=== PATIENT | male | born 1985 | race Caucasian/White ===

== ENCOUNTER 2022-03-19 12:32 | Emergency (ER) | payer SELFPAY ==
--- NOTE | 2022-03-19 13:09 | PC.NURSE ---
patient walked out of ED reporting that he can just run to urgent care.
== END 2022-03-20 03:08 | disposition left against medical advice (07) ==
DX: Z53.21 Procedure and treatment not carried out due to patient leaving prior to being seen by health care provider (principal)
CPT/HCPCS: 99199

== ENCOUNTER 2023-11-08 16:08 | Emergency (ER) | payer SELFPAY ==
--- NOTE | 2023-11-08 16:20 | PC.NURSE ---
pt states is going to leave.
== END 2023-11-08 16:20 | disposition left against medical advice (07) ==
DX: Z53.21 Procedure and treatment not carried out due to patient leaving prior to being seen by health care provider (principal)
CPT/HCPCS: 99199